=== PATIENT | female | born 1985 | race Caucasian/White ===

== ENCOUNTER 2017-12-25 11:02 | Emergency (ER) | payer MEDICAID ==
[~2017-12-25] VITALS: Ht 162.6 cm; Wt 72.7 kg
[2017-12-25 11:07] VITALS: Ht 162.6 cm; Wt 72.7 kg
[2017-12-25] MEDS ORDERED: SYNTHROID112 MCG PO (11:10)
[2017-12-25 11:46] LABS: BASOPHILS 0 % (0-2); EOSINOPHILS 1.2 % (0-7); HEMATOCRIT 37.4 % (36.0-48.0); HEMOGLOBIN 12.5 g/dL (12-16); IMMATURE GRANULOCYTES 0.2 % (0-5); LYMPHOCYTES 26.4 % (15-50); MCH 27.1 pg (26.0-34.0); MCHC 33.4 g/dL (31.0-37.0); MCV 81.1 fL (80.0-100.0); MEAN PLATELET VOLUME 9.6 fL (7.4-10.4); NEUTROPHILS 65.2 % (40-80); PLATELET COUNT 239 10x3/uL (130-400); RBC 4.61 10x6/uL (4.00-5.40)
[2017-12-25 11:53] LABS: APPEARANCE CLOUDY (CLEAR); BILIRUBIN NEGATIVE (NEGATIVE); COLOR YELLOW (YELLOW); GLUCOSE NEGATIVE (NEGATIVE); KETONE NEGATIVE (NEGATIVE); NITRITE NEGATIVE (NEGATIVE); PROTEIN NEGATIVE (NEGATIVE); UROBILINOGEN NORMAL (NORMAL)
[2017-12-25 11:54] LABS: HCG URINE NEGATIVE (NEGATIVE)
[2017-12-25] MEDS ORDERED: VOLTAREN75 MG PO (13:25)
[2017-12-25 13:54] VITALS: BP 120/78
== END 2017-12-25 13:55 | disposition home or self-care (01) ==
LOC: D.ER 11:02
PROVIDERS: Emergency Medicine
DX: B34.9 Viral infection, unspecified (principal); M25.562 Pain in left knee; M25.561 Pain in right knee; R50.9 Fever, unspecified